=== PATIENT | female | born 1960 | race Hispanic/Latino ===

== ENCOUNTER 2017-06-19 13:21 | Emergency (ER) | payer OTHER ==
[2017-06-19 13:44] VITALS: BMI 31.1
--- NOTE | 2017-06-19 15:00 | ED PDOC ---
Arrival/HPI - General Historian: Patient - History of Present Illness Time/Duration: Other (2 days ago) Symptom Onset: Gradual Symptom Course: Worsening Quality: Stabbing Severity Level: 5 - General Chief Complaint: Finger,Hand,&Wrist Time Seen by Provider: 06/19/17 14:08 - History of Present Illness Narrative History of Present Illness (Text): 06/19/17 15:49 57-year-old female presents today with left wrist pain. Patient denies any recent trauma or injury.patient states 2 days ago she twisted her wrist while turning a knob and thought nothing of it. 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 Patient states she had taken Naprosyn for pain earlier. Denies fevers or chills. No chest pain or shortness of breath. Patient denies numbness weakness or tingling in the extremities. Patient denies fall. No other complaints (Kailaia,Gertrude T) Past Medical History - Provider Review Nursing Documentation Reviewed: Yes - Travel History Have you recently traveled outside [place] w/in the past 3 mons?: No - Infectious Disease Hx of Infectious Diseases: None - Tetanus Immunization Tetanus Immunization: Unknown - Psychiatric Hx Substance Use: No - Anesthesia Hx Anesthesia: No Hx Anesthesia Reactions: No Hx Malignant Hyperthermia: No Family/Social History - Physician Review Nursing Documentation Reviewed: Yes Family/Social History: Unknown Family HX Smoking Status: Never Smoked Hx Alcohol Use: Yes Frequency of alcohol use: Socially Hx Substance Use: No Allergies/Home Meds Allergies/Adverse Reactions: Allergies KNDA Allergy (Uncoded 06/19/17 13:45) . Review of Systems - Review of Systems Constitutional: absent: Fatigue, Fevers Respiratory: absent: SOB, Cough Cardiovascular: absent: Chest Pain, Palpitations Gastrointestinal: absent: Abdominal Pain, Diarrhea, Nausea, Vomiting Musculoskeletal: Arthralgias (left wrist pain). absent: Back Pain, Neck Pain Skin: absent: Rash, Pruritis Neurological: absent: Headache, Dizziness Psychiatric: absent: Anxiety, Depression Physical Exam Vital Signs Reviewed: Yes Temperature: Afebrile Blood Pressure: Normal Pulse: Tachycardic Respiratory Rate: Normal Appearance: Positive for: Well-Appearing, Non-Toxic, Comfortable Pain Distress: None Mental Status: Positive for: Alert and Oriented X 3 - Systems Exam Head: Present: Atraumatic Mouth: Present: Moist Mucous Membranes Neck: Present: Normal Range of Motion Respiratory/Chest: Present: Clear to Auscultation, Good Air Exchange. No: Respiratory Distress, Accessory Muscle Use Cardiovascular: Present: Regular Rate and Rhythm, Normal S1, S2. No: Murmurs Upper Extremity: Present: Normal ROM, NORMAL PULSES, Tenderness (left wrist; + ttp along radial aspect; no snuff box tenderness; no edema, no erythema; no ecchymosis; sensation and distal pulses intact. full rom of wrist; ), Neurovascularly Intact, Capillary Refill < 2s. No: Swelling, Erythema, Deformity Neurological: Present: GCS=15, Speech Normal Skin: Present: Warm, Dry, Normal Color. No: Rashes Psychiatric: Present: Alert, Oriented x 3 Medical Decision Making ED Course and Treatment: 06/19/17 15:55 Patient nontoxic well-appearing in no distress X-rays of the left wrist: No fracture motrin po Patient placed in a thumb spica Velcro splint applied I discussed all results with patient advised to followup with the orthopedist for the next 2 days. Return if symptoms worsen persist or new symptoms develop i advised the patient that although the xrays show no fracture; there is still a possibility for ligamentous or tendon injury the patient must see the orthopedist for further evaluation. Patient verbalizes understanding of discharge instructions and need for immediate followup. Impression: Wrist pain Motrin every 6 hours as needed for pain Rest, ice, compression, elevation Followup with the orthopedist within the next 2 days Followup with primary care physician within the next 2 days Return if any other concerning symptoms develop (Gertrude Skinner) I was available for consultation during PA evaluation. The chart reviewed by me , and I agree with disposition. The documented history was done by the physician public health aide. The documented physical exam was done by physician public health aide. The documented procedures were done by physician public health aide. (Igor Good) - RAD Interpretation Radiology Orders: 06/19/17 14:14 WRIST, LEFT 3 VIEWS [RAD] Stat - Medication Orders Current Medication Orders: Discontinued Medications Ibuprofen (Motrin Tab) 600 mg PO STAT STA Stop: 06/19/17 14:14 Last Admin: 06/19/17 14:20 Dose: 600 mg Re-Assess: LANDON Pain/Vitals Document 06/19/17 15:20 GMI (Rec: 06/19/17 16:04 GMI [id number]) Pain Reassessment Is This A Pain ReAssessment? Yes Sleep Is patient sleeping during reassessment? No Presence of Pain Presence of Pain No Ketorolac Tromethamine (Toradol) 60 mg IM STAT STA Stop: 06/19/17 14:09 Last Admin: 06/19/17 14:12 Dose: Not Given Non-Admin Reason: Patient Refused Disposition/Present on Arrival - Present on Arrival Any Indicators Present on Arrival: No History of DVT/PE: No History of Uncontrolled Diabetes: No Urinary Catheter: No History of Decub. Ulcer: No History Surgical Site Infection Following: None - Disposition Have Diagnosis and Disposition been Completed?: Yes Disposition Time: 15:21 Patient Plan: Discharge - Disposition Diagnosis: Wrist pain Disposition: HOME/ ROUTINE Condition: GOOD Discharge Instructions (ExitCare): Wrist Injury (ED) Additional Instructions: Motrin every 6 hours as needed for pain Use splint Rest, ice, compression, elevation Followup with the orthopedist within the next 2 days Followup with primary care physician within the next 2 days Return if any other concerning symptoms develop Prescriptions: Ibuprofen [Motrin] 600 mg PO Q6H PRN #20 tab PRN Reason: pain/fever reduction Referrals: Ginna Vargas MD [Staff Provider] - Follow up with primary Srini Cartwright MD [Staff Provider] - Follow up with primary [facility] [place] - [facility] up with primary [facility] [place] [Outside] - Follow up with primary Forms: [employer] ([employer]), WORK NOTE
[2017-06-19 15:56] VITALS: BP 128/83; PULSE 89; RESP 18; TEMP 98.3; O2SAT 98
--- NOTE | 2017-06-19 17:30 | RAD ---
PROCEDURE: Left Wrist Radiographs. HISTORY: wrist pain COMPARISON: None. FINDINGS: BONES: Normal. No fracture. JOINTS: Normal. No dislocation. SOFT TISSUES: Normal. OTHER FINDINGS: None. IMPRESSION: Normal left wrist radiographs.
== END 2017-06-19 16:10 | disposition home or self-care (01) ==
LOC: EDSEX 13:21 → ED 13:21
DX: M25.532 Pain in left wrist (principal)